=== PATIENT | female | born 1955 | race Caucasian/White ===

== ENCOUNTER 2017-10-29 20:34 | Emergency (ER) | payer SELFPAY ==
[2017-10-29 21:03] VITALS: TEMP 99
[2017-10-29] MEDS ORDERED: IPRATROPIUM/ALBUTEROL 3 ML DEYVIAL IH ONE (21:43)
--- NOTE | 2017-10-29 21:47 | EDPHY ---
H & P Stated Complaint: COUGH/SOB/FEVER X 5 DAYS Time Seen by Provider: 10/29/17 21:22 HPI/ROS: CHIEF COMPLAINT: Cough HISTORY OF PRESENT ILLNESS: The patient is a 61-year-old female with no significant past medical history who comes to the emergency department complaining of a cough productive for green sputum for the last 5 days. She states that would initially began she had body aches and fevers and nausea. That resolved after about 48 hr but she has continued to have a persistent mild cough. She denies shortness of breath. [place] also traveled [place] ago and states that she feels like she was detoxing from living with her dad and she drove [place] the cut she thinks gradually "came out ". She denies leg pain or swelling. She does not smoke. She states that she eats holistic food except for sugar. REVIEW OF SYSTEMS: Constitutional: See HPI EENTM: denies: blurred vision, double vision, nose congestion Respiratory: See HPI Cardiac: denies: chest pain, irregular heart rate, lightheadedness, palpitations Gastrointestinal/Abdominal: denies: abdominal pain, diarrhea, nausea, vomiting, blood streaked stools Genitourinary: denies: dysuria, frequency, hematuria, pain Musculoskeletal: denies: joint pain, muscle pain Skin: denies: lesions, rash, jaundice, bruising Neurological: denies: headache, numbness, paresthesia, tingling, dizziness, weakness Hematologic/Lymphatic: denies: blood clots, easy bleeding, easy bruising Immunologic/allergic: denies: HIV/AIDS, transplant EXAM: GENERAL: Well-appearing, morbidly obese in no acute distress. HEAD: Atraumatic, normocephalic. EYES: Pupils equal round and reactive to light, extraocular movements intact, sclera anicteric, conjunctiva are normal. ENT: TMs normal, nares patent, oropharynx clear without exudates. Moist mucous membranes. NECK: Normal range of motion, supple without lymphadenopathy or JVD. LUNGS: Breath sounds clear to auscultation bilaterally and equal. No wheezes rales or rhonchi. HEART: Regular rate and rhythm without murmurs, rubs or gallops. ABDOMEN: Soft, nontender, normoactive bowel sounds. No guarding, no rebound. No masses appreciated. BACK: No CVA tenderness, no spinal tenderness, step-offs or deformities EXTREMITIES: Normal range of motion, no pitting or edema. No clubbing or cyanosis. NEUROLOGICAL: Cranial nerves II through XII grossly intact. Normal speech, normal gait. 5/5 strength, normal movement in all extremities, normal sensation PSYCH: Normal mood, normal affect. SKIN: Warm, dry, normal turgor, no visible rashes or lesions. 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 - Family History Significant Family History: No pertinent family hx - Social History Smoking Status: Never smoked Alcohol Use: None Drug Use: None Constitutional: Initial Vital Signs Temperature (C) 37.2 C 10/29/17 20:59 Heart Rate 90 10/29/17 20:59 Respiratory Rate 18 10/29/17 20:59 Blood Pressure 137/79 H 10/29/17 20:59 O2 Sat (%) 92 10/29/17 20:59 O2 Delivery Mode Room Air Allergies/Adverse Reactions: No Known Allergies Allergy (Unverified 10/29/17 20:58) Home Medications: Medication Instructions Recorded Benzonatate [Tessalon Pearles (RX)] 100 mg PO TID #30 cap 10/29/17 guaiFENesin [Mucinex 600 MG (*)] 600 mg PO BID #20 tab.er 10/29/17 Medical Decision Making ED Course/Re-evaluation: Patient is well appearing clinically. I suspect bronchitis. I will obtain an x -ray and treat with a DuoNeb to see if this helps. 10:10 p.m. we discussed the x-ray results. I suspect this is viral parent she did not get better after albuterol. I will treat her with Tessalon Perles and Mucinex. She is happy with this plan and declines further workup or testing at this time. We discussed indications for returning. Differential Diagnosis: Partial list of the Differential diagnosis considered include but were not limited to; bronchitis, pneumonia, upper respiratory tract infection, influenza and although unlikely based on the history and physical exam, I also considered gastritis, meningitis, sepsis. I discussed these differential diagnoses and the plan with the patient as well as the usual and expected course. The patient understands that the diagnosis is provisional and that in medicine we are not always correct and that further workup is often warranted. Usual and customary warnings were given. All of the patient's questions were answered. The patient was instructed to return to the emergency department should the symptoms at all worsen or return, otherwise to followup with the physician as we discussed. - Data Points Medications Given: Discontinued Medications Albuterol/Ipratropium (Duoneb) 3 ml IH EDNOW ONE Stop: 10/29/17 21:44 Last Admin: 10/29/17 21:50 Dose: 3 ml Benzonatate (Tessalon Pearles) 200 mg PO EDNOW ONE Stop: 10/29/17 22:17 Last Admin: 10/29/17 22:26 Dose: 200 mg Guaifenesin (Mucinex) 600 mg PO EDNOW ONE Stop: 10/29/17 22:16 Last Admin: 10/29/17 22:53 Dose: 600 mg Departure - Departure Disposition: Home, Routine, Self-Care Clinical Impression: Acute bronchitis Qualifiers: Bronchitis organism: unspecified organism Qualified Code(s): J20.9 - Acute bronchitis, unspecified Condition: Good Instructions: Acute Bronchitis (ED) Referrals: NONE *PRIMARY CARE P,. [Primary Care Provider] - As per Instructions Lauren Carpenter [place] [place] - As per Instructions Prescriptions: Benzonatate [Tessalon Pearles (RX)] 100 mg PO TID #30 cap guaiFENesin [Mucinex 600 MG (*)] 600 mg PO BID #20 tab.er
[2017-10-29] MEDS ORDERED: guaiFENesin 600 MG TAB.ER PO ONE (22:15)
[2017-10-29] MEDS ORDERED: BENZONATATE 100 MG CAP PO ONE (22:16)
[2017-10-29 22:55] VITALS: BP 134/72; PULSE 85; RESP 16; O2SAT 93
== END 2017-10-29 22:55 | disposition home or self-care (01) ==
DX: J20.9 Acute bronchitis, unspecified (principal)